=== PATIENT | male | born 1960 | race Caucasian/White ===

== ENCOUNTER 2024-09-12 17:23 | Emergency (ER) | payer BC, SELFPAY ==
[2024-09-12 17:26] VITALS: BP 170/100
[2024-09-12 18:03] VITALS: BMI 28.2
--- NOTE | 2024-09-12 18:49 | ED.GENMED ---
History of Present Illness
General
Chief Complaint: Flank Pain
Time Seen by Provider: 09/12/24 17:50
History of Present Illness
History of Present Illness:
64-year-old male presents to the emergency department for evaluation of right lower quadrant abdominal pain and right flank pain has been ongoing for the past several weeks. No obvious provoking or palliating factors. Pain does not radiate to the
legs or toward the groin. Went to urgent care prior to arrival today at which time he had a normal CBC and BMP and a negative urinalysis. Was given 30 mg of IM Toradol without relief. Denies any known traumatic injuries.
Review of Systems
Review of Systems
Allergies reviewed?: Yes
All Other Systems: ROS reviewed and negative except as documented in HPI and ROS
Phy Exam
Physical Exam
Physical Exam:
GEN: Well appearing, NAD, WDWN
HEENT: Oral mucosa moist, no scleral icterus
Cardiac: Regular rate
Lung: No respiratory distress, no tachypnea
Abdomen: Soft, grossly nontender to palpation of the abdomen. No CVA tenderness, no obvious lumbar spine tenderness
MSK: No gross deformity or injuries
Skin: Good color, no pallor or jaundice, no rashes
Neuro: AO x3, moves all extremities freely
Psych: Calm, cooperative
Course
Orders/Labs/Results
Orders:
Orders
09/12/24 18:01
CT Abd/Pel (IV only)-[facility] only Urgent
Comment: creat 1.1 at today
Reason For Exam: R flank pain/RLQ pain
Vital Signs
Initial and Last Documented VS:
Initial Vital Signs
Temp Pulse Resp BP Pulse Ox
98.6 F 51 17 170/100 99
09/12/24 17:26 09/12/24 17:26 09/12/24 17:26 09/12/24 17:26 09/12/24 17:26
Last Documented Vital Signs
Temp Pulse Resp BP Pulse Ox
98.6 F 51 17 133/73 98
09/12/24 17:26 09/12/24 17:26 09/12/24 17:26 09/12/24 19:00 09/12/24 19:45
MDM/Problems Addressed
MDM/Problems Addressed:
Etiology of the patient's pain is not clear at this point. Certainly could be thoracolumbar disc disease although less likely given lack of lower extremity radiculopathy. Imaging shows no evidence for clear source. Will trial a course of
corticosteroids with outpatient follow-up with primary care
*Critical Care Note
Total Time (30-74mins, 75-104mins- exclusive of procedures): Not Applicable
ED Attending Note
-
Portions of this chart may have been created with voice recognition software.� Occasional wrong word or��sound alike� substitutions may have occurred due to the inherent limitations of voice recognition software.
Discharge Plan
Departure
Patient Disposition: Home (Routine Discharge)
Date of Disposition: 09/12/24
Time of Disposition: 20:36
Patient with high blood pressure during this ER visit?: No
Discharge Problem:
Abdominal pain, lower
Instructions: Flank Pain (DC)
Prescriptions:
New
methylprednisolone [Medrol ([place])] 4 mg tablets,dose pack
See Rx Instructions .ROUTE .COMPLEX Qty: 21 0RF
Rx Instructions:
for 6 days
Referrals:
Miley Maya E, DO [Family Provider] -
Activity Restrictions/Additional Instructions:
Follow-up with your primary care physician regarding the abnormal findings on your CAT scan showing several small lesions in your liver. You may require an nonemergent MRI of your abdomen to further assess these. You should also follow-up with
your primary regarding this persistent pain and if the steroids do not help
Interventions
Interventions:
*Risk Screen - Suicide Last Done: 09/12/24 17:26
*General Assessment Last Done: 09/12/24 17:26
*Neglect/Abuse Screening Last Done: 09/12/24 17:26
*ED- Fall Risk Assessment Last Done: 09/12/24 18:56
*ED COVID-19 Vaccine History Last Done: 09/12/24 17:26
*Nursing Disposition Last Done: 09/12/24 20:46
NB-Kusvvx-Hrfkknkndd Assessment Last Done: 09/12/24 18:56
ED-Male Genitourinary Assessment Last Done: 09/12/24 18:56
Discharge Date and Time
Discharge Date/Time: 09/12/24 20:47
Print Language: HEBREW
[2024-09-12 18:58] VITALS: BP 132/78
[2024-09-12 19:00] VITALS: BP 133/73
== END 2024-09-12 20:47 | disposition home or self-care (01) ==
LOC: EMR 17:23
PROVIDERS: EMERGENCY PHYSICIAN Emergency Medicine; FAMILY PHYSICIAN Family Medicine
DX: R10.31 Right lower quadrant pain (principal)
CPT/HCPCS: 99284; 74177; Q9967